=== PATIENT | male | born 1980 | race Caucasian/White ===

== ENCOUNTER 2017-02-28 17:21 | Emergency (ER) | payer BC ==
[2017-02-28 17:48] VITALS: BP 134/85
[2017-02-28 18:25] LABS: CHLORIDE,CL 99 mmol/L (101-111); SODIUM,NA 135 mmol/L (135-145)
--- NOTE | 2017-02-28 18:36 | EDM.PDOC ---
ED HPI GENERAL MEDICAL PROBLEM - General Chief Complaint: General Stated Complaint: SICK AND ANXIOUS W/HIGH BP Time Seen by Provider: 02/28/17 18:09 Source of Information: Reports: Patient History Limitations: Reports: No limitations - Related Data Allergies Allergy/AdvReac Type Severity Reaction Status Date / Time No Known Allergies Allergy Verified 02/28/17 17:35 Home Meds: Home Meds . [No Known Home Meds] 02/28/17 [History] Past Medical History - Past Health History Medical/Surgical History: Denies Medical/Surgical History Social & Family History - Tobacco Use Smoking Status *Q: Never Smoker Second Hand Smoke Exposure: No - Caffeine Use Caffeine Use: Reports: Coffee Caffeine Use Comment: states he had a double shot coffee - Recreational Drug Use Recreational Drug Use: No ED ROS GENERAL - Review of Systems Review Of Systems: See Below Constitutional: Reports: no symptoms Respiratory: Reports: No Symptoms Cardiovascular: Reports: No symptoms Endocrine: Reports: no symptoms GI/Abdominal: Reports: No symptoms Musculoskeletal: Reports: no symptoms Skin: Reports: no symptoms Psychiatric: Reports: Anxiety. Denies: Hallucinations, Homicidal ideation, Suicidal ideation ED EXAM, GENERAL - Physical Exam Exam: See Below Eye Exam: bilateral eye: normal inspection, PERRL Ears: normal external exam Nose: normal inspection, normal mucosa, no blood Throat/Mouth: Normal inspection, Normal lips, Normal teeth, Normal gums, Normal oropharynx, Normal voice, No airway compromise Head: atraumatic, normocephalic Neck: normal inspection, supple, non-tender, full range of motion Respiratory/Chest: no respiratory distress, lungs clear, normal breath sounds, no accessory muscle use, chest non-tender Cardiovascular: normal peripheral pulses, regular rate, rhythm, no edema, no gallop, no JVD, no murmur, no rub Peripheral Pulses: 1+: carotid (L), carotid (R), radial (L), radial (R), posterior tibial (L), posterior tibial (R), dorsalis pedis (L), dorsalis pedis ( R) Back Exam: normal inspection, full range of motion, NT Extremities: normal inspection, normal range of motion, non-tender, normal capillary refill, no pedal edema Psychiatric: flat affect Skin Exam: Warm, Dry, Intact, Normal color, No rash Course - Vital Signs Last Recorded V/S: Last Vital Signs Temp 97.8 F 02/28/17 17:21 Pulse 89 02/28/17 17:21 Resp 16 02/28/17 17:21 BP 134/85 02/28/17 17:21 Pulse Ox 100 02/28/17 17:21 - Orders/Labs/Meds Labs: Laboratory Tests 02/28/17 02/28/17 02/28/17 Range/Units 17:45 17:58 17:58 WBC 7.0 (5.0-10.0) 10^3/uL RBC 4.96 (4.6-6.2) 10^6/uL Hgb 15.9 (14.0-18.0) g/dL Hct 42.6 (40.0-54.0) % MCV 85.9 (80-100) fL MCH 32.1 (27.0-34.0) pg MCHC 37.3 H (33.0-35.0) g/dL Plt Count 238 (150-450) 10^3/uL Neut % (Auto) 82.8 H (42.2-75.2) % Lymph % (Auto) 11.9 L (20.5-50.1) % [place] % (Auto) 5.2 (2-8) % Eos % (Auto) 0.0 L (1.0-3.0) % Baso % (Auto) 0.1 (0.0-1.0) % Sodium 135 (135-145) mmol/L Potassium 3.7 (3.6-5.0) mmol/L Chloride 99 L (101-111) mmol/L Carbon Dioxide 27.0 (21.0-31.0) mmol/L Anion Gap 12.7 BUN 12 (7-18) mg/dL Creatinine 0.9 (0.6-1.3) mg/dL Est Cr Clr Drug Dosing 114.56 mL/min Estimated GFR (MDRD) > 60 BUN/Creatinine Ratio 13.33 Glucose 138 H (74-105) mg/dL Calcium 9.5 (8.4-10.2) mg/dl Total Bilirubin 1.3 H (0.2-1.0) mg/dL AST 23 (10-42) IU/L ALT 14 (10-60) IU/L Alkaline Phosphatase 54 (42-121) IU/L Total Protein 7.9 (6.7-8.2) g/dl Albumin 5.0 (3.2-5.5) g/dl Globulin 2.9 Albumin/Globulin Ratio 1.72 Urine Opiates Screen Negative (NEGATIVE) Ur Oxycodone Screen Negative (NEGATIVE) Urine Methadone Screen Negative (NEGATIVE) Ur Barbiturates Screen Negative (NEGATIVE) U Tricyclic Antidepress Negative (NEGATIVE) Ur Phencyclidine Scrn Negative (NEGATIVE) Ur Amphetamine Screen Negative (NEGATIVE) U Methamphetamines Scrn Negative (NEGATIVE) Urine MDMA Screen Negative (NEGATIVE) U Benzodiazepines Scrn Negative (NEGATIVE) Urine Cocaine Screen Negative (NEGATIVE) U Marijuana (THC) Screen Negative (NEGATIVE) Departure - Departure Time of Disposition: 19:21 Disposition: Home, Self-Care 01 Condition: good Clinical Impression: Generalized anxiety disorder Instructions: Panic Attacks, [id number] Forms: ED Department Discharge
== END 2017-02-28 19:26 | disposition home or self-care (01) ==
LOC: DL.ED 17:21
DX: F41.1 Generalized anxiety disorder (principal)
CPT/HCPCS: 36415; 80053; 80305; 85025; 99283